=== PATIENT | female | born 1980 | race Caucasian/White ===

== ENCOUNTER → 2017-02-08 | Outpatient (REF) | payer BC ==
[~2017-02-08] MED LIST: HAIR1CHW PO; IBUP80TA PO; MULT1TAB10 PO; PERC5TAB12 PO
== END ==
LOC: M LAB REF 16:19
PROVIDERS: ATTEND Obstetrics & Gynecology
DX: N76.0 Acute vaginitis (principal)

== ENCOUNTER → 2017-04-28 | Outpatient (REF) | payer BC | LOC: M LAB REF 10:03 | PROVIDERS: ATTEND Physician Assistant | DX: N39.0 Urinary tract infection, site not specified (principal) ==

== ENCOUNTER → 2017-09-28 | Outpatient (REF) | payer BC | LOC: M LAB REF 12:00 | DX: J02.9 Acute pharyngitis, unspecified (principal) | CPT/HCPCS: 87070 ==

== ENCOUNTER → 2018-01-22 | Outpatient (REF) | payer BC ==
[2018-01-22 13:43] LABS: FOLATE > 24.0 NG/ML; VITAMIN B12 LEVEL 660 PG/ML
[2018-01-22 13:48] LABS: RHEUMATOID FACTOR QUANT < 10.0 IU/ML (<15.0)
[2018-01-22 14:07] LABS: ERYTHROCYTE SEDIMENTATION RATE 8 mm/hr (0-20)
[2018-01-29 10:58] LABS: DRVV SCREEN 36.5 SEC
[2018-01-29 11:12] LABS: PTT LUPUS TYPE ANTICOAG SCREEN 0.9 (0-1.2)
[2018-01-30 00:12] LABS: ANCA-ATYPICAL <1:20 titer (Neg:<1:20); ANTI DOUBLE STRAND-DNA AB <1 IU/mL (0-9); ANTI THROMBIN 3 FUNCT ACTIVITY 98 % (75-135); ANTINUCLEAR ANTIBODIES DIRECT Negative (Negative); CARDIOLIPIN IGA ANTIBODY <9 APL U/mL (0-11); CARDIOLIPIN IGG ANTIBODY <9 GPL U/mL (0-14); CARDIOLIPIN IGM ANTIBODY <9 MPL U/mL (0-12); CERULOPLASMIN 21.8 mg/dL (19.0-39.0); COPPER PLASMA 98 ug/dL (72-166); CYTOPLASMIC NEUTROP AB ANCA-C <1:20 titer (Neg:<1:20); LEAD BLOOD ADULT <1 ug/dL (0-19); Lyme Disease IgG/IgM Antibodie <0.91 ISR (0.00-0.90); Lyme Disease IgM Ab Quantitati <0.80 index (0.00-0.79); MERCURY LEVEL None Detected ug/L (0.0-14.9); PERINUCLEAR AB ANCA-P <1:20 titer (Neg:<1:20); PROTEIN C FUNCTIONAL ACTIVITY 103 % (73-180); PROTEIN S FUNCTIONAL ACTIVITY 104 % (63-140); SJOGREN'S ANTI SS-A <0.2 AI (0.0-0.9); SJOGREN'S ANTI SS-B <0.2 AI (0.0-0.9)
== END ==
LOC: M LABNEURO 11:05
DX: R20.2 Paresthesia of skin (principal); Z86.73 Personal history of transient ischemic attack (TIA), and cerebral infarction without residual deficits

== ENCOUNTER → 2018-03-15 | Outpatient (REF) | payer BC | LOC: M WUC 13:41 | DX: R30.0 Dysuria (principal) | CPT/HCPCS: 87186 ==

== ENCOUNTER → 2018-04-03 | Outpatient (REF) | payer BC | LOC: M LAB REF 17:17 | DX: R35.0 Frequency of micturition (principal) | CPT/HCPCS: 87186 ==

== ENCOUNTER → 2018-05-11 | Outpatient (CLI) | payer BC ==
[2018-05-11 18:53] LABS: BASO % 0.7 % (0.0-1.0); EOS # 0.2 10^3/uL (0.0-0.50); EOS % 4.2 % (0.0-3.0); HEMOGLOBIN 13.9 g/dl (12.0-15.5); IMMATURE GRANULOCYTE % 0.2 % (0-3.0); LYMPH # 1.8 10^3/uL (1.5-4.5); LYMPH % 32.8 % (24.0-44.0); MEAN CORPUSCULAR HEMOGLOBIN 34.4 pg (27.0-33.0); MEAN CORPUSCULAR HGB CONC 33.1 g/dl (32.0-36.5); MONO # 0.7 10^3/uL (0.0-0.8); MONO % 12.3 % (0.0-5.0); NEUTROPHILS # 2.7 10^3/uL (1.8-7.7); NEUTROPHILS % 49.8 % (36.0-66.0); PLATELET COUNT, AUTOMATED 302 10^3/uL (150-450); RED BLOOD COUNT 4.04 10^6/uL (4.00-5.40); RED CELL DISTRIBUTION WIDTH 12.2 % (11.5-14.5); WHITE BLOOD COUNT 5.4 10^3/uL (4.0-10.0)
[2018-05-11 19:10] LABS: ALBUMIN 4.1 GM/DL (3.2-5.2); ALBUMIN/GLOBULIN RATIO 1.21 (1.00-1.93); ALKALINE PHOSPHATASE 49 U/L (45-117); ALT/SGPT 28 U/L (12-78); ANION GAP 7 MEQ/L (8-16); AST/SGOT 17 U/L (7-37); BILIRUBIN,TOTAL 0.2 MG/DL (0.2-1.0); BLOOD UREA NITROGEN 14 MG/DL (7-18); CALCIUM LEVEL 9.6 MG/DL (8.5-10.1); CARBON DIOXIDE LEVEL 29 MEQ/L (21-32); CHLORIDE LEVEL 104 MEQ/L (98-107); CREATININE FOR GFR 0.77 MG/DL (0.55-1.30); FREE T4 0.91 NG/DL (0.76-1.46); GLOMERULAR FILTRATION RATE > 60.0 (>60); GLUCOSE, FASTING 97 MG/DL (70-100); IRON (FE) 82 UG/DL (50-170); PERCENT SATURATION 26.6 % (13.2-45.0); POTASSIUM SERUM 4.7 MEQ/L (3.5-5.1); SODIUM LEVEL 140 MEQ/L (136-145); TOTAL IRON BINDING CAPACITY 308 UG/DL (250-450); TOTAL PROTEIN 7.5 GM/DL (6.4-8.2)
== END ==
LOC: M LRY 12:24
DX: R53.83 Other fatigue (principal)
CPT/HCPCS: 83550

== ENCOUNTER → 2018-08-28 | Outpatient (REF) | payer BC ==
[2018-08-28 14:39] LABS: CHLAMYDIA DNA AMPLIFICATION NEGATIVE (NEGATIVE); GC DNA AMPLIFICATION NEGATIVE (NEGATIVE)
== END ==
LOC: M LAB REF 12:55
PROVIDERS: ATTEND Physician Assistant Medical
DX: N76.0 Acute vaginitis (principal)

== ENCOUNTER → 2021-10-07 | Outpatient (CLI) | payer OTHER ==
[2021-10-07 15:17] LABS: BASO % 0.7 % (0.0-1.0); EOS # 0.1 10^3/uL (0.0-0.5); EOS % 2.3 % (0.0-3.0); HEMATOCRIT 37.8 % (36.0-47.0); HEMOGLOBIN 12.7 g/dl (12.0-15.5); LYMPH # 1.7 10^3/uL (1.5-5.0); LYMPH % 29.7 % (24.0-44.0); MEAN CORPUSCULAR HGB CONC 33.6 g/dl (32.0-36.5); MEAN CORPUSCULAR VOLUME 101.1 fl (80.0-96.0); MONO # 0.4 10^3/uL (0.0-0.8); MONO % 6.9 % (2.0-8.0); NEUTROPHILS # 3.5 10^3/uL (1.5-8.5); NEUTROPHILS % 60.1 % (36.0-66.0); PLATELET COUNT, AUTOMATED 336 10^3/uL (150-450); RED BLOOD COUNT 3.74 10^6/uL (4.00-5.40); WHITE BLOOD COUNT 5.8 10^3/uL (4.0-10.0)
[2021-10-07 15:46] LABS: ALBUMIN 4.2 GM/DL (3.2-5.2); ALT/SGPT 31 U/L (12-78); BILIRUBIN,TOTAL 0.4 MG/DL (0.2-1.0); BLOOD UREA NITROGEN 17 MG/DL (7-18); CALCIUM LEVEL 9.5 MG/DL (8.5-10.1); CARBON DIOXIDE LEVEL 29 MEQ/L (21-32); CHLORIDE LEVEL 106 MEQ/L (98-107); CHOLESTEROL LEVEL 158 MG/DL (<200); CHOLESTEROL RISK RATIO 2.194 (<5); CREATININE FOR GFR 0.95 MG/DL (0.55-1.30); FREE T4 0.98 NG/DL (0.76-1.46); GLOMERULAR FILTRATION RATE > 60.0 (>58); GLUCOSE, FASTING 81 MG/DL (70-100); HDL CHOLESTEROL 72 MG/DL (>40); LDL CHOLESTEROL 72 MG/DL (<100); NON-HDL-C 86 MG/DL; POTASSIUM SERUM 4.4 MEQ/L (3.5-5.1); SODIUM LEVEL 138 MEQ/L (136-145); TOTAL PROTEIN 7.1 GM/DL (6.4-8.2); TRIGLYCERIDES LEVEL 70 MG/DL (<150)
[2021-10-07 18:47] LABS: TOTAL 25(OH) VITAMIN D 35.1 NG/ML (30.0-100.0)
== END ==
LOC: M PLALAB 13:44
PROVIDERS: ATTEND Physician Assistant Medical
DX: E55.9 Vitamin D deficiency, unspecified (principal); F41.8 Other specified anxiety disorders; Z13.220 Encounter for screening for lipoid disorders

== ENCOUNTER → 2021-11-21 | Outpatient (CLI) | payer OTHER | LOC: M WHC 14:59 | PROVIDERS: ATTEND Physician Assistant Medical | DX: Z12.31 Encounter for screening mammogram for malignant neoplasm of breast (principal); Z80.3 Family history of malignant neoplasm of breast ==

== ENCOUNTER → 2021-11-29 | Outpatient (REF) | payer OTHER | LOC: M SFHCDERM 17:25 | PROVIDERS: ATTEND Nurse Practitioner Family | DX: C44.612 Basal cell carcinoma of skin of right upper limb, including shoulder (principal) ==

== ENCOUNTER → 2022-01-02 | Outpatient (REF) | payer OTHER | LOC: M SFHCWAGY 18:15 | PROVIDERS: ATTEND Nurse Practitioner Family | DX: C44.612 Basal cell carcinoma of skin of right upper limb, including shoulder (principal) ==

== ENCOUNTER → 2022-09-22 | Outpatient (CLI) | payer OTHER ==
[2022-09-22 15:42] LABS: BASO # 0.1 10^3/uL (0.0-0.2); BASO % 0.6 % (0.0-1.0); EOS # 0.1 10^3/uL (0.0-0.5); HEMATOCRIT 38.6 % (36.0-47.0); LYMPH # 2.1 10^3/uL (1.5-5.0); LYMPH % 21.3 % (24.0-44.0); MEAN CORPUSCULAR HGB CONC 33.7 g/dl (32.0-36.5); MONO # 0.5 10^3/uL (0.0-0.8); MONO % 5.3 % (2.0-8.0); NEUTROPHILS # 6.9 10^3/uL (1.5-8.5); NEUTROPHILS % 71.4 % (36.0-66.0); PLATELET COUNT, AUTOMATED 333 10^3/uL (150-450); RED BLOOD COUNT 3.82 10^6/uL (4.00-5.40); WHITE BLOOD COUNT 9.6 10^3/uL (4.0-10.0)
[2022-09-22 16:26] LABS: ALBUMIN 3.8 G/DL (3.2-5.2); ALKALINE PHOSPHATASE 50 U/L (46-116); ALT/SGPT 23 U/L (7.0-40); AST/SGOT 17 U/L (<34); BILIRUBIN,TOTAL 0.4 MG/DL (0.3-1.2); BLOOD UREA NITROGEN 13 MG/DL (9-23); CALCIUM LEVEL 9.1 MG/DL (8.5-10.1); CARBON DIOXIDE LEVEL 30 MMOL/L (20-31); CHLORIDE LEVEL 103 MMOL/L (98-107); CHOLESTEROL LEVEL 141 MG/DL (<200); CHOLESTEROL RISK RATIO 2.15 (<5); CREATININE FOR GFR 0.78 MG/DL (0.55-1.30); FREE T4 1.09 NG/DL (0.89-1.76); GLOMERULAR FILTRATION RATE > 60.0 (>58); GLUCOSE, FASTING 82 MG/DL (60-100); HDL CHOLESTEROL 65.3 MG/DL (>40); LDL CHOLESTEROL 44.9 MG/DL (<100); NON-HDL-C 75.7 MG/DL; POTASSIUM SERUM 3.9 MMOL/L (3.5-5.1); PTH INTACT 26.2 PG/ML (18.5-88.0); SODIUM LEVEL 139 MMOL/L (136-145); THYROID STIMULATING HORMONE 1.387 uIU/ML (0.55-4.78); TOTAL 25(OH) VITAMIN D 38.2 NG/ML (20.0-100.0); TOTAL PROTEIN 6.6 G/DL (5.7-8.2); TRIGLYCERIDES LEVEL 154 MG/DL (<150)
== END ==
LOC: M PLALAB 13:13
PROVIDERS: ATTEND Physician Assistant Medical
DX: E55.9 Vitamin D deficiency, unspecified (principal)

== ENCOUNTER → 2022-10-12 | Outpatient (REF) | payer OTHER ==
[2022-10-12 15:19] LABS: APPEARANCE, URINE TURBID (CLEAR); BACTERIA, URINE AUTO 1+ (NEGATIVE); BILIRUBIN, URINE AUTO NEGATIVE (NEGATIVE); BLOOD, URINE BLOOD NEGATIVE (NEGATIVE); COLOR, URINE AMBER (YELLOW); GLUCOSE, URINE (UA) AUTO NEGATIVE (NEGATIVE); KETONE, URINE AUTO TRACE mg/dL (NEGATIVE); LEUKOCYTE ESTERASE, URINE AUTO NEGATIVE (NEGATIVE); MUCUS, URINE LARGE (NEGATIVE); NITRITE, URINE AUTO NEGATIVE (NEGATIVE); PROTEIN, URINE AUTO 1+ mg/dL (NEGATIVE); RBC, URINE AUTO 1 /HPF (0-3); SPECIFIC GRAVITY URINE AUTO 1.025 (1.002-1.035); SQUAMOUS EPITHELIAL CELL UR AU 2 /HPF (0-6); UROBILINOGEN, URINE AUTO 0.2 mg/dL (0.0-2.0); WBC, URINE AUTO 3 /HPF (0-3)
== END ==
LOC: M SFHCPLAZ 13:02
PROVIDERS: ATTEND Physician Assistant
DX: R30.0 Dysuria (principal)

== ENCOUNTER → 2022-11-02 | Outpatient (REF) | payer OTHER | LOC: M SFHCPLAZ 09:21 | PROVIDERS: ATTEND Physician Assistant Medical | DX: Z53.29 Procedure and treatment not carried out because of patient's decision for other reasons (principal) ==

== ENCOUNTER → 2022-11-06 | Outpatient (REF) | payer OTHER | LOC: M SFHCPLAZ 16:56 | PROVIDERS: ATTEND Physician Assistant Medical | DX: Z53.9 Procedure and treatment not carried out, unspecified reason (principal); R30.0 Dysuria ==

== ENCOUNTER → 2022-11-07 | Outpatient (CLI) | payer OTHER ==
[2022-11-07 15:42] LABS: APPEARANCE, URINE CLEAR (CLEAR); BACTERIA, URINE AUTO NEGATIVE (NEGATIVE); BILIRUBIN, URINE AUTO NEGATIVE (NEGATIVE); BLOOD, URINE BLOOD NEGATIVE (NEGATIVE); COLOR, URINE STRAW (YELLOW); GLUCOSE, URINE (UA) AUTO NEGATIVE (NEGATIVE); KETONE, URINE AUTO NEGATIVE (NEGATIVE); LEUKOCYTE ESTERASE, URINE AUTO NEGATIVE (NEGATIVE); NITRITE, URINE AUTO NEGATIVE (NEGATIVE); PROTEIN, URINE AUTO NEGATIVE (NEGATIVE); RBC, URINE AUTO 0 /HPF (0-3); SPECIFIC GRAVITY URINE AUTO 1.004 (1.002-1.035); SQUAMOUS EPITHELIAL CELL UR AU 0 /HPF (0-6); UROBILINOGEN, URINE AUTO 0.2 mg/dL (0.0-2.0); WBC, URINE AUTO 0 /HPF (0-3)
[2022-11-07 15:52] LABS: BASO # 0.1 10^3/uL (0.0-0.2); BASO % 0.7 % (0.0-1.0); EOS # 0.1 10^3/uL (0.0-0.5); EOS % 1.6 % (0.0-3.0); HEMATOCRIT 37.4 % (36.0-47.0); HEMOGLOBIN 12.3 g/dl (12.0-15.5); LYMPH # 2.2 10^3/uL (1.5-5.0); LYMPH % 28.8 % (24.0-44.0); MEAN CORPUSCULAR HEMOGLOBIN 33.6 pg (27.0-33.0); MEAN CORPUSCULAR HGB CONC 32.9 g/dl (32.0-36.5); MEAN CORPUSCULAR VOLUME 102.2 fl (80.0-96.0); MONO # 0.5 10^3/uL (0.0-0.8); MONO % 6.4 % (2.0-8.0); NEUTROPHILS # 4.7 10^3/uL (1.5-8.5); NEUTROPHILS % 62.4 % (36.0-66.0); PLATELET COUNT, AUTOMATED 381 10^3/uL (150-450); RED BLOOD COUNT 3.66 10^6/uL (4.00-5.40); WHITE BLOOD COUNT 7.5 10^3/uL (4.0-10.0)
[2022-11-07 16:21] LABS: ALBUMIN 3.7 G/DL (3.2-5.2); ALKALINE PHOSPHATASE 49 U/L (46-116); ALT/SGPT 23 U/L (7.0-40); AST/SGOT < 8 U/L (<34); BILIRUBIN,TOTAL 0.2 MG/DL (0.3-1.2); BLOOD UREA NITROGEN 7 MG/DL (9-23); CALCIUM LEVEL 9.1 MG/DL (8.5-10.1); CARBON DIOXIDE LEVEL 29 MMOL/L (20-31); CHLORIDE LEVEL 104 MMOL/L (98-107); CHOLESTEROL LEVEL 141 MG/DL (<200); CREATININE FOR GFR 0.74 MG/DL (0.55-1.30); GLOMERULAR FILTRATION RATE > 60.0 (>58); GLUCOSE, FASTING 76 MG/DL (60-100); HDL CHOLESTEROL 70.3 MG/DL (>40); LDL CHOLESTEROL 48.7 MG/DL (<100); NON-HDL-C 70.7 MG/DL; POTASSIUM SERUM 4.1 MMOL/L (3.5-5.1); PTH INTACT 46.6 PG/ML (18.5-88.0); SODIUM LEVEL 139 MMOL/L (136-145); TOTAL 25(OH) VITAMIN D 38.6 NG/ML (20.0-100.0); TOTAL PROTEIN 6.4 G/DL (5.7-8.2); TRIGLYCERIDES LEVEL 110 MG/DL (<150)
[2022-11-07 16:23] LABS: FREE T4 0.97 NG/DL (0.89-1.76)
== END ==
LOC: M PLALAB 12:53
PROVIDERS: ATTEND Physician Assistant Medical
DX: Z00.00 Encounter for general adult medical examination without abnormal findings (principal); F41.8 Other specified anxiety disorders; R30.0 Dysuria; E55.9 Vitamin D deficiency, unspecified; Z13.220 Encounter for screening for lipoid disorders

== ENCOUNTER → 2023-04-04 | Outpatient (CLI) | payer OTHER ==
[2023-04-04 15:55] LABS: BASO # 0.1 10^3/uL (0.0-0.2); BASO % 0.5 % (0.0-1.0); EOS # 0.2 10^3/uL (0.0-0.5); EOS % 1.5 % (0.0-3.0); HEMATOCRIT 38.3 % (36.0-47.0); HEMOGLOBIN 12.8 g/dl (12.0-15.5); LYMPH # 2.8 10^3/uL (1.5-5.0); LYMPH % 26.1 % (24.0-44.0); MEAN CORPUSCULAR HEMOGLOBIN 33.9 pg (27.0-33.0); MEAN CORPUSCULAR HGB CONC 33.4 g/dl (32.0-36.5); MEAN CORPUSCULAR VOLUME 101.3 fl (80.0-96.0); MONO # 0.8 10^3/uL (0.0-0.8); MONO % 7.5 % (2.0-8.0); NEUTROPHILS # 6.8 10^3/uL (1.5-8.5); NEUTROPHILS % 64.2 % (36.0-66.0); PLATELET COUNT, AUTOMATED 336 10^3/uL (150-450); RED BLOOD COUNT 3.78 10^6/uL (4.00-5.40); WHITE BLOOD COUNT 10.7 10^3/uL (4.0-10.0)
[2023-04-04 16:21] LABS: FERRITIN 99.9 NG/ML (7.3-270.7)
== END ==
LOC: M PLALAB 14:10
PROVIDERS: ATTEND Physician Assistant Medical
DX: R71.0 Precipitous drop in hematocrit (principal)

== ENCOUNTER → 2023-07-06 | Outpatient (CLI) | payer OTHER ==
[2023-07-06 17:29] LABS: ALBUMIN 4.1 G/DL (3.2-5.2); ALKALINE PHOSPHATASE 64 U/L (46-116); ALT/SGPT 30 U/L (7.0-40); AST/SGOT 15 U/L (<34); BILIRUBIN,TOTAL 0.6 MG/DL (0.3-1.2); BLOOD UREA NITROGEN 12 MG/DL (9-23); CALCIUM LEVEL 9.8 MG/DL (8.5-10.1); CARBON DIOXIDE LEVEL 28 MMOL/L (20-31); CHLORIDE LEVEL 102 MMOL/L (98-107); CREATININE FOR GFR 0.66 MG/DL (0.55-1.30); GLOMERULAR FILTRATION RATE > 60.0 (>58); GLUCOSE, FASTING 99 MG/DL (60-100); POTASSIUM SERUM 4.5 MMOL/L (3.5-5.1); PTH INTACT 42.3 PG/ML (18.5-88.0); SODIUM LEVEL 137 MMOL/L (136-145); THYROID STIMULATING HORMONE 1.467 uIU/ML (0.55-4.78); TOTAL PROTEIN 7.3 G/DL (5.7-8.2)
[2023-07-06 17:30] LABS: TOTAL 25(OH) VITAMIN D 27.1 NG/ML (20.0-100.0)
== END ==
LOC: M PLALAB 11:55
PROVIDERS: ATTEND Physician Assistant Medical
DX: E55.9 Vitamin D deficiency, unspecified (principal); R63.5 Abnormal weight gain

== ENCOUNTER → 2023-08-27 | Outpatient (REF) | payer OTHER | LOC: M LAB REF 18:01 | PROVIDERS: ATTEND Surgery | DX: D48.5 Neoplasm of uncertain behavior of skin (principal); I78.1 Nevus, non-neoplastic ==

== ENCOUNTER → 2024-01-04 | Outpatient (CLI) | payer OTHER ==
[2024-01-04 11:16] LABS: BASO # 0.1 10^3/uL (0.0-0.2); BASO % 0.9 % (0.0-1.0); EOS # 0.2 10^3/uL (0.0-0.5); EOS % 3.1 % (0.0-3.0); HEMATOCRIT 41.9 % (36.0-47.0); LYMPH # 2.1 10^3/uL (1.5-5.0); LYMPH % 29.4 % (24.0-44.0); MEAN CORPUSCULAR HEMOGLOBIN 34.2 pg (27.0-33.0); MEAN CORPUSCULAR HGB CONC 33.4 g/dl (32.0-36.5); MEAN CORPUSCULAR VOLUME 102.4 fl (80.0-96.0); MONO # 0.5 10^3/uL (0.0-0.8); MONO % 7.1 % (2.0-8.0); NEUTROPHILS # 4.1 10^3/uL (1.5-8.5); NEUTROPHILS % 59.1 % (36.0-66.0); PLATELET COUNT, AUTOMATED 368 10^3/uL (150-450); RED BLOOD COUNT 4.09 10^6/uL (4.00-5.40)
[2024-01-04 11:43] LABS: HEMOGLOBIN A1c 4.8 % (4.0-6.0)
[2024-01-04 11:49] LABS: C REACTIVE PROTEIN QUANTITATIV < 0.40 MG/DL (<1.0)
[2024-01-04 11:51] LABS: ALBUMIN 3.9 G/DL (3.2-5.2); ALKALINE PHOSPHATASE 57 U/L (46-116); ALT/SGPT 29 U/L (7.0-40); AST/SGOT 12 U/L (<34); BILIRUBIN,DIRECT 0.1 MG/DL (<0.4); BILIRUBIN,TOTAL 0.5 MG/DL (0.3-1.2); BLOOD UREA NITROGEN 19 MG/DL (9-23); CALCIUM LEVEL 9.8 MG/DL (8.5-10.1); CARBON DIOXIDE LEVEL 29 MMOL/L (20-31); CHLORIDE LEVEL 103 MMOL/L (98-107); CHOLESTEROL LEVEL 177 MG/DL (<200); CHOLESTEROL RISK RATIO 2.56 (<5); CREATININE FOR GFR 0.82 MG/DL (0.55-1.30); GLOMERULAR FILTRATION RATE > 60.0 (>58); GLUCOSE, FASTING 77 MG/DL (60-100); HDL CHOLESTEROL 69.1 MG/DL (>40); LDL CHOLESTEROL 80.9 MG/DL (<100); NON-HDL-C 107.9 MG/DL; POTASSIUM SERUM 4.4 MMOL/L (3.5-5.1); SODIUM LEVEL 137 MMOL/L (136-145); TOTAL PROTEIN 6.9 G/DL (5.7-8.2); TRIGLYCERIDES LEVEL 135 MG/DL (<150)
[2024-01-04 11:57] LABS: THYROXINE (T4) 5.4 UG/DL (4.5-10.9)
[2024-01-04 11:58] LABS: THYROID STIMULATING HORMONE 1.906 uIU/ML (0.55-4.78)
== END ==
LOC: M PLALAB 07:09
PROVIDERS: ATTEND Nurse Practitioner Family
DX: E66.8 Other obesity (principal)

== ENCOUNTER → 2024-02-25 | Outpatient (CLI) | payer OTHER | LOC: M WHC 09:58 | PROVIDERS: ATTEND Physician Assistant Medical | DX: Z12.31 Encounter for screening mammogram for malignant neoplasm of breast (principal) ==

== ENCOUNTER → 2024-05-23 | Outpatient (CLI) | payer OTHER ==
[2024-05-23 10:51] LABS: BASO # 0.1 10^3/uL (0.0-0.2); BASO % 0.8 % (0.0-1.0); EOS # 0.4 10^3/uL (0.0-0.5); EOS % 5.3 % (0.0-3.0); HEMATOCRIT 41.3 % (36.0-47.0); HEMOGLOBIN 13.9 g/dl (12.0-15.5); LYMPH # 1.6 10^3/uL (1.5-5.0); LYMPH % 21.9 % (24.0-44.0); MEAN CORPUSCULAR HEMOGLOBIN 34.3 pg (27.0-33.0); MEAN CORPUSCULAR HGB CONC 33.7 g/dl (32.0-36.5); MONO # 0.5 10^3/uL (0.0-0.8); MONO % 6.7 % (2.0-8.0); NEUTROPHILS # 4.7 10^3/uL (1.5-8.5); PLATELET COUNT, AUTOMATED 369 10^3/uL (150-450); RED BLOOD COUNT 4.05 10^6/uL (4.00-5.40); WHITE BLOOD COUNT 7.3 10^3/uL (4.0-10.0)
[2024-05-23 11:15] LABS: ALBUMIN 3.9 G/DL (3.2-5.2); ALKALINE PHOSPHATASE 53 U/L (35-104); ALT/SGPT 18 U/L (7.0-40); AST/SGOT < 8 U/L (<34); BILIRUBIN,TOTAL 0.6 MG/DL (0.3-1.2); BLOOD UREA NITROGEN 12 MG/DL (9-23); CALCIUM LEVEL 9.7 MG/DL (8.5-10.1); CARBON DIOXIDE LEVEL 30 MMOL/L (20-31); CHLORIDE LEVEL 106 MMOL/L (98-107); CHOLESTEROL LEVEL 154 MG/DL (<200); CHOLESTEROL RISK RATIO 2.42 (<5); CREATININE FOR GFR 0.86 MG/DL (0.55-1.30); GLOMERULAR FILTRATION RATE > 60.0 (>58); GLUCOSE, FASTING 80 MG/DL (60-100); HDL CHOLESTEROL 63.5 MG/DL (>40); LDL CHOLESTEROL 72.5 MG/DL (<100); NON-HDL-C 90.5 MG/DL; POTASSIUM SERUM 4.6 MMOL/L (3.5-5.1); SODIUM LEVEL 139 MMOL/L (136-145); TOTAL PROTEIN 7.1 G/DL (5.7-8.2); TRIGLYCERIDES LEVEL 90 MG/DL (<150)
[2024-05-23 11:19] LABS: THYROID STIMULATING HORMONE 1.086 uIU/ML (0.55-4.78); TOTAL 25(OH) VITAMIN D 43.8 NG/ML (20.0-100.0)
[2024-05-23 11:26] LABS: FREE T4 0.94 NG/DL (0.89-1.76)
== END ==
LOC: M PLALAB 07:30
PROVIDERS: ATTEND Physician Assistant Medical
DX: E55.9 Vitamin D deficiency, unspecified (principal); Z13.220 Encounter for screening for lipoid disorders; F41.8 Other specified anxiety disorders; G47.00 Insomnia, unspecified; J30.89 Other allergic rhinitis

== ENCOUNTER → 2024-06-23 | Outpatient (CLI) | payer OTHER ==
[2024-06-23 16:06] LABS: FOLLICLE STIMULATING HORMONE 5.2 mIU/ML; LUTEINIZING HORMONE 11.6 mIU/ML
== END ==
LOC: M PLALAB 14:08
PROVIDERS: ATTEND Physician Assistant Medical
DX: N95.1 Menopausal and female climacteric states (principal)

== ENCOUNTER → 2024-07-22 | Outpatient (CLI) | payer OTHER ==
[2024-07-22 17:03] LABS: CORTISOL AM 15.7 UG/DL (4.3-22.4)
[2024-07-22 17:05] LABS: ALBUMIN 3.8 G/DL (3.2-5.2); ALKALINE PHOSPHATASE 46 U/L (35-104); ALT/SGPT 20 U/L (7.0-40); AST/SGOT 10 U/L (<34); BILIRUBIN,TOTAL 0.4 MG/DL (0.3-1.2); BLOOD UREA NITROGEN 13 MG/DL (9-23); CALCIUM LEVEL 9.8 MG/DL (8.5-10.1); CARBON DIOXIDE LEVEL 30 MMOL/L (20-31); CHLORIDE LEVEL 103 MMOL/L (98-107); CREATININE FOR GFR 0.63 MG/DL (0.55-1.30); GLOMERULAR FILTRATION RATE > 60.0 (>58); GLUCOSE, FASTING 83 MG/DL (60-100); POTASSIUM SERUM 4.1 MMOL/L (3.5-5.1); SODIUM LEVEL 137 MMOL/L (136-145); TOTAL PROTEIN 6.6 G/DL (5.7-8.2)
[2024-07-22 17:08] LABS: APPEARANCE, URINE CLEAR (CLEAR); BACTERIA, URINE AUTO NEGATIVE (NEGATIVE); BILIRUBIN, URINE AUTO NEGATIVE (NEGATIVE); BLOOD, URINE BLOOD NEGATIVE (NEGATIVE); COLOR, URINE YELLOW (YELLOW); GLUCOSE, URINE (UA) AUTO NEGATIVE (NEGATIVE); KETONE, URINE AUTO NEGATIVE (NEGATIVE); LEUKOCYTE ESTERASE, URINE AUTO NEGATIVE (NEGATIVE); MUCUS, URINE SMALL (NEGATIVE); NITRITE, URINE AUTO NEGATIVE (NEGATIVE); PROTEIN, URINE AUTO NEGATIVE (NEGATIVE); RBC, URINE AUTO 0 /HPF (0-3); SPECIFIC GRAVITY URINE AUTO 1.013 (1.002-1.035); SQUAMOUS EPITHELIAL CELL UR AU 1 /HPF (0-6); UROBILINOGEN, URINE AUTO 0.2 mg/dL (0.0-2.0); WBC, URINE AUTO 0 /HPF (0-3)
[2024-07-22 17:10] LABS: VITAMIN B12 LEVEL > 2000 PG/ML (211-911)
== END ==
LOC: M PLALAB 14:16
PROVIDERS: ATTEND Physician Assistant Medical
DX: R53.82 Chronic fatigue, unspecified (principal)

== ENCOUNTER → 2024-09-15 | Outpatient (REF) | payer OTHER | LOC: M SFHCPLAZ 17:35 | PROVIDERS: ATTEND Physician Assistant Medical | DX: J01.00 Acute maxillary sinusitis, unspecified (principal) ==

== ENCOUNTER → 2024-09-29 | Outpatient (REF) | payer OTHER ==
[2024-10-01 11:08] LABS: HPV APTIMA Not Detected (Not Detected)
== END ==
LOC: M SFHCWAGY 13:19
PROVIDERS: ATTEND Nurse Practitioner Family
DX: Z12.72 Encounter for screening for malignant neoplasm of vagina (principal); Z77.9 Other contact with and (suspected) exposures hazardous to health
CPT/HCPCS: 87624; G0123